=== PATIENT | female | born 1960 | race Caucasian/White ===

== ENCOUNTER 2018-11-24 23:02 | Inpatient (IN) ==
[2018-11-24] MEDS ORDERED: Ibuprofen 400 MG TABLET PO PRN (23:49)
[2018-11-24] MEDS ORDERED: *HR* LORazepam 1 MG TABLET PO PRN (23:49)
[2018-11-24] MEDS ORDERED: Mag Hydrox/Al Hydrox/Simeth 30 ML UDC PO PRN (23:49)
[2018-11-24] MEDS ORDERED: Haloperidol Lactate 5 MG/ML VIAL IM PRN (23:49)
[2018-11-24] MEDS ORDERED: MOM Conc 10 ML UD.LIQ PO PRN (23:49)
[2018-11-24] MEDS ORDERED: *HR* LORazepam 2 MG/ML VIAL IM PRN (23:49)
[2018-11-24] MEDS ORDERED: Nicotine 21 MG PATCH.TD24 TD ONE (23:53)
[2018-11-25] MEDS: Nicotine 21 MG PATCH.TD24 TD SCH ×2 (09:09→15:12)
--- NOTE | 2018-11-25 09:13 | Psychiatry History & Physical ---
Date of Encounter: 11/25/18 Time of Encounter: 09:11 History of Present Illness Patient Stated Chief Complaint: "I was wanting to end" Medicare Admission Attestation: For traditional Medicare patients the provided hospital inpatient services are reasonable and necessary and in the case of services not specified as inpatient-only under 42 CFR 419.22 (n), that they are appropriately provided as inpatient services in accordance 42 CFR 412.3. For Critical Access Hospital the patient may reasonably be expected to be discharged or transferred to a hospital within 96 hours after admission to the Critical Access Hospital. Admitted From: Direct Admit Plans for Post Hospital Care: Home History of Present Illness: Ms. Srivastava is a 58 year old female Who went to [facility] emergency room after pulling out a knife and holding it to her stomach saying that she wanted to . She also waited toward her but that she was not wanting to hurt him just wanting him to get back. She reports she has been feeling depressed for several years. She said that she had been on Zoloft and Klonopin but stopped taking it because she felt it was making her nauseous so that she could not eat and that she had lost too much weight. She reports sad mood decrease interest feelings of guilt and worthlessness low energy and impaired concentration decreased appetite with weight loss. She has also not been taking her medical medications. She reports suicidal ideation with a plan to cut herself. She denies past manic manic symptoms. She denies psychotic symptoms such as auditory or visual caldwell ucinations or paranoia. According to nursing staff this morning she came out of her room and appeared somewhat confused and had to be reoriented to the unit. Last night she got Haldol and Ativan due to being very anxious and upset and unable to sleep. Past Med Surg Social Fam HX - Past Medical History Medical history: diabetes, hyperlipidemia, hypertension - Past Psychiatric History Psychiatric history: Reports: anxiety, depression, previous psychiatric hospitalization Past psychiatric history details: The patient reports she had been getting medications by her primary care physician. She says she has previously been tried on Paxil which her doctor took her off to switch her to Zoloft she is not sure why. She was also taking Klonopin which she said was somewhat helpful. She has 1 prior hospitalization which was very brief about 3-4 months ago she went to [facility] in [place] but asked her to take her home which he did. She reports she has previously tried to wrists but only made "chicken scratches". She denies ever having tried therapy in the past. Family psychiatric history: Yes (She says her sister and niece have depression.) Family Psychiatric History Details: She says her sister and niece have depression. Family History of Suicide: Attempted Family Suicide History Details: Not in biological family however her sister's brother did attempt suicide. - Past Surgical History Surgical History: , hysterectomy, other - Social History Smoking Status: Current every day smoker Smokeless Tobacco Status: No Alcohol use: none Drug use: none Additional substance use detail: She reports 1 pack of cigarettes per day no alcohol or drugs. Occupational status: unemployed, previously employed Current living situation: Home - Independent Activity Level: Independent ambulation Recent Out of Country Travel Within the Last 8 Weeks: No Exposure or Possible Exposure to Illness During Travel: No Additional social history: She graduated high school. She is . She says her tries to be supportive. There is no abuse. She has 2 adult sons. 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 She has not been employed for several years. Medications & Allergies Glimepiride [Amaryl] 4 mg PO DAILY 11/24/18 [History] Lisinopril 2.5 mg PO DAILY 11/24/18 [History] Sertraline [Zoloft] 50 mg PO BID 11/24/18 [History] Simvastatin [Zocor] 20 mg PO DAILY 11/24/18 [History] clonazePAM [Clonazepam] 1 mg PO BID PRN 11/24/18 [History] metFORMIN [Glucophage] 1,000 mg PO BIDWM 11/24/18 [History] Allergy/AdvReac Type Severity Reaction Status Date / Time No Known Allergies Allergy Verified 11/24/18 23:29 Review of Systems Constitutional: Reports: weakness, weight change Eyes: Denies: eye pain, vision change Ears, Nose, Throat: Denies: ear pain Cardiovascular: Denies: chest pain Respiratory: Denies: cough Gastrointestinal: Denies: abdominal pain Genitourinary female: Denies: urgency Musculoskeletal: Reports: joint pain, myalgia Integumentary: Reports: lesions (On her forehead and her knuckles.) Neurological: Reports: weakness Psychiatric: Reports: depression, anxiety, abnormal sleep pattern, suicidal ideation, change in appetite, difficulty concentrating, hopelessness. Denies: homicidal ideation, auditory hallucinations Endocrine: Reports: fatigue Hematologic/Lymphatic: Reports: easy bruising Allergic/Immunologic: Denies: urticaria Exam - HEENT Head exam IM: Present: atraumatic Eye exam IM: Present: normal appearance ENT exam IM: Present: mucous membranes moist - Neurological Neurological exam: Present: alert - Respiratory Respiratory exam IM: Absent: respiratory distress - GI/Abdominal GI/Abdominal exam IM: Absent: no peritoneal signs - Extremities Extremities exam IM: Present: full ROM - Skin Skin exam IM: Present: abrasion (She has an abrasion above her eyes and a crack on her knuckle that appears to be related to dry skin), dry - Constitutional Vitals: Temp Pulse Resp BP Pulse Ox 97.1 F L 87 16 127/71 97 11/25/18 09:00 11/25/18 09:00 11/25/18 09:00 11/25/18 09:00 11/25/18 09:00 General appearance: age & developmentally appropriate, disheveled - Musculoskeletal Gait: slow Station: stooped Strength & Tone: mild weakness - Psychiatric Patient Orientation: Yes Person, Yes Time, Yes Place, Yes Circumstance Level of alertness: Alert Behavior: restless, guarded Psychomotor activity: Slowed Eye Contact: Minimal Contact Mood Description: Depressed Patient description of mood: "Terrible" Affect description: blunted, dysphoric Speech Volume: Soft/Quiet Speech pattern: slowed Language & Vocabulary: consistent with education, difficulty finding words Thought Process: Slowed Thinking Thought Content: Yes Suicidal ideation, No Homicidal ideation Perceptual Disturbances: No Auditory hallucinations, No Visual hallucinations Attention Span Ability: Unable to Focus, Unable to Sustain Attention Memory Description: Immediate Impaired, Recent Impaired, Remote Impaired Patient Reliability: Questionable Historian Fund of knowledge: Yes average Intelligence Estimate: Average Judgment: Limited Insight: Minimal Assessment and Plan (1) Depressed Current visit: Yes Status: Acute Plan: Admit inpatient for safety and stabilization Additional Plan: I will check labs including CBC CMP TSH and urinalysis. I will check if she had lab work done at [facility]. If not I will check the above labs. I will start her on Remeron 7.5 mg by mouth daily at bedtime for depression and anxiety and her feeling that she has decreased appetite. Discussed risk benefit side effects of this alternative treatment options as well as the risks and benefits of no treatment. Will get her back on her Glucophage but at a lower dose to start with and check her Accu-Cheks I will also restart her lisinopril was checking her blood pressures and recheck her simvastatin. Encourage group attendance. Social work will get collateral information from family. Risks, benefits, side effects, alternatives discussed w/pt: Yes Patient agreeable to treatment: Yes Plans for Post Hospital Care: Home Estimated Length of Stay (Days): 5 Qualifiers: Depression Type: major depressive disorder Major depression recurrence: recurrent Active/Remission status: currently active Major depression episode severity: severe Psychotic features: without psychotic features Qualified Code(s): F33.2 - Major depressive disorder, recurrent severe without psychotic features
[2018-11-25] MEDS: clonazePAM 0.5 MG TABLET PO SCH ×2 (11:56→21:11)
[2018-11-25] MEDS: *HR* Metformin 500 MG TABLET PO SCH (17:30)
[2018-11-25] MEDS: Mirtazapine 15 MG TABLET PO SCH (21:11)
[2018-11-26] MEDS: *HR* Metformin 500 MG TABLET PO SCH ×2 (08:58→16:49)
[2018-11-26] MEDS: Nicotine 21 MG PATCH.TD24 TD SCH ×2 (08:58→10:17)
[2018-11-26] MEDS: clonazePAM 0.5 MG TABLET PO SCH ×2 (08:58→20:34)
--- NOTE | 2018-11-26 11:46 | Psychiatry Progress Note ---
Date of Encounter: 11/26/18 Time of Encounter: 11:42 Subjective Interval history: Client states she slept well last night with the Remeron. Also reports her appetite is fine. However, she is very flat. Denies SI but looks very depressed. Also seems to have some paranoia. Asking about what would happen if she was discharged and her did not show up to pick her up. According to staff he visited last night and was very supportive. reported she can come home but client stated last night she's not sure if that is possible. Suspect she has a psychotic depression. Would likely benefit from some low dose Risperdal. Client is small and thin so a little medication might go a long way with her. Will give her a low dose tonight to take with the Remeron. Review of Systems Constitutional: Denies: fever, chills, weakness, weight change Eyes: Denies: eye pain, vision change Ears, Nose, Throat: Denies: ear pain, throat pain, dental pain, hearing loss, congestion Cardiovascular: Denies: chest pain, palpitations, dyspnea on exertion Respiratory: Denies: cough, dyspnea, wheezes Gastrointestinal: Denies: abdominal pain, nausea, vomiting, diarrhea, constipation Musculoskeletal: Denies: joint swelling, joint pain Neurological: Denies: headache, weakness, numbness, memory loss Psychiatric: Reports: depression, anxiety, abnormal sleep pattern, suicidal ideation, change in appetite, difficulty concentrating, hopelessness. Denies: homicidal ideation, auditory hallucinations Results - Vital Signs Vital Signs: Temp Pulse Resp BP Pulse Ox 98 F 94 16 131/79 97 11/26/18 09:00 11/26/18 09:00 11/26/18 09:00 11/26/18 09:00 11/26/18 09:00 - Labs Labs: Laboratory Results - last 24 hr 11/25/18 11/25/18 11/25/18 11:55 16:31 20:11 POC Glucose 318 H 235 H 331 H 11/26/18 11/26/18 08:36 10:46 POC Glucose 245 H 320 H Assessment and Plan (1) Severe recurrent major depression w/psychotic features, mood-congruent Current visit: Yes Status: Acute Plan: Continue hospitalization, Close observation, Suicide Precautions per unit protocol, Encourage participation in unit milieu, Group Therapy, Monitor sleep, Monitor appetite Risks, benefits, side effects, alternatives discussed w/pt: Yes Patient agreeable to treatment: Yes Consult Discharge Plan - Plan Referrals: NONE,PCP [Primary Care Provider] - Psychiatry Exam - Constitutional Vitals: Temp Pulse Resp BP Pulse Ox 98 F 94 16 131/79 97 11/26/18 09:00 11/26/18 09:00 11/26/18 09:00 11/26/18 09:00 11/26/18 09:00 General appearance: thin - Musculoskeletal Gait: normal Station: relaxed Strength & Tone: normal for patient - Psychiatric Patient Orientation: Yes Person, Yes Time, Yes Place Level of alertness: Alert Behavior: calm, cooperative Psychomotor activity: Normal Eye Contact: Maintains Eye Contact Mood Description: Depressed Affect description: flat Speech Volume: Normal Speech pattern: normal rate, normal rhythm, normal tone, fluent, spontaneous Language & Vocabulary: consistent with education Thought Process: Linear Thought Content: No Suicidal ideation, No Homicidal ideation, Yes Paranoid delusion Perceptual Disturbances: No Auditory hallucinations, No Visual hallucinations Attention Span Ability: Capable of Focused Attention Memory Description: Grossly Intact Patient Reliability: Reliable Historian Fund of knowledge: Yes abstraction ability, Yes aware of current events Intelligence Estimate: Average Judgment: Limited Insight: Minimal
[2018-11-26 13:18] LABS: Estimated Average Glucose 275 mg/dl; Hemoglobin A1C 11.2 %
[2018-11-26] MEDS: Mirtazapine 15 MG TABLET PO SCH (20:34)
[2018-11-26] MEDS: risperiDONE 0.25 MG TABLET PO SCH (20:38)
[2018-11-27] MEDS: clonazePAM 0.5 MG TABLET PO SCH ×2 (08:15→20:20)
[2018-11-27] MEDS: Nicotine 21 MG PATCH.TD24 TD SCH ×2 (08:15→19:06)
[2018-11-27] MEDS: *HR* Metformin 500 MG TABLET PO SCH ×2 (08:15→17:40)
--- NOTE | 2018-11-27 10:01 | Psychiatry Progress Note ---
Date of Encounter: 11/27/18 Time of Encounter: 09:50 Subjective Interval history: Client refused her Remeron last night. However, she took her Risperdal and Zestril. According to staff there did not seem to be any reason why she selected those two meds. It seems like she just picked out two of them, took them, and refused the rest. Today client states she took "some of them" but did not have any clear reasons for refusing the others. Spent a lot of time this morning going over each medication. Client wrote down all her individual medications including their doses, frequencies, and indications. States she will take them tonight. Denies SI but admits she is depressed. States she does not have an appetite and is not eating well. Very flat. Still paranoid will not pick her up when discharged or come to visit her here in the hospital. According to staff he seems to really care for her and wants her home. Staff spoke with her via phone last night and it seems as if client has been doing/thinking bizarre things at home for a while. Client seems like she has a psychotic depression. Although not actively suicidal she does not seem safe for discharge. She is willing to stay in the hospital for treatment and agrees to take the medications as prescribed tonight. Review of Systems Constitutional: Denies: fever, chills, weakness, weight change Eyes: Denies: eye pain, vision change Ears, Nose, Throat: Denies: ear pain, throat pain, dental pain, hearing loss, congestion Cardiovascular: Denies: chest pain, palpitations, dyspnea on exertion Respiratory: Denies: cough, dyspnea, wheezes Gastrointestinal: Denies: abdominal pain, nausea, vomiting, diarrhea, constipation Musculoskeletal: Denies: joint swelling, joint pain Neurological: Denies: headache, weakness, numbness, memory loss Psychiatric: Reports: depression, anxiety, abnormal sleep pattern, suicidal ideation, change in appetite, difficulty concentrating, hopelessness. Denies: homicidal ideation, auditory hallucinations Results - Vital Signs Vital Signs: Temp Pulse Resp BP Pulse Ox 97.5 F L 100 18 103/69 96 11/27/18 09:00 11/27/18 09:00 11/27/18 09:00 11/27/18 09:00 11/27/18 09:00 - Labs Labs: Laboratory Results - last 24 hr 11/25/18 11/26/18 11/26/18 10:17 10:46 16:37 POC Glucose 320 H 246 H Est Mean Plasma Glucose 275 Hemoglobin A1c 11.2 H 11/26/18 11/27/18 20:27 07:51 POC Glucose 248 H 217 H Est Mean Plasma Glucose Hemoglobin A1c Assessment and Plan (1) Severe recurrent major depression w/psychotic features, mood-congruent Current visit: Yes Status: Acute Plan: Continue hospitalization, Close observation, Suicide Precautions per unit protocol, Encourage participation in unit milieu, Group Therapy, Monitor sleep, Monitor appetite Risks, benefits, side effects, alternatives discussed w/pt: Yes Patient agreeable to treatment: Yes Consult Discharge Plan - Plan Referrals: NONE,PCP [Primary Care Provider] - Psychiatry Exam - Constitutional Vitals: Temp Pulse Resp BP Pulse Ox 97.5 F L 100 18 103/69 96 11/27/18 09:00 11/27/18 09:00 11/27/18 09:00 11/27/18 09:00 11/27/18 09:00 General appearance: thin - Musculoskeletal Gait: normal Station: relaxed Strength & Tone: normal for patient - Psychiatric Patient Orientation: Yes Person, Yes Time, Yes Place Level of alertness: Alert Behavior: calm, cooperative Psychomotor activity: Normal Eye Contact: Maintains Eye Contact Mood Description: Depressed Affect description: flat Speech Volume: Normal Speech pattern: normal rate, normal rhythm, normal tone, fluent, spontaneous Language & Vocabulary: consistent with education Thought Process: Evasive Thought Content: No Suicidal ideation, No Homicidal ideation, Yes Paranoid delusion Perceptual Disturbances: No Auditory hallucinations, No Visual hallucinations Attention Span Ability: Capable of Focused Attention Memory Description: Grossly Intact Patient Reliability: Reliable Historian Fund of knowledge: Yes abstraction ability, Yes aware of current events Intelligence Estimate: Average Judgment: Limited Insight: Minimal
[2018-11-27] MEDS: traZODone 50 MG TABLET PO PRN (20:19)
[2018-11-27] MEDS: Mirtazapine 15 MG TABLET PO SCH (20:20)
[2018-11-27] MEDS: risperiDONE 0.25 MG TABLET PO SCH (20:21)
[2018-11-28] MEDS: Nicotine 21 MG PATCH.TD24 TD SCH (08:34)
[2018-11-28] MEDS: clonazePAM 0.5 MG TABLET PO SCH ×2 (08:34→20:40)
[2018-11-28] MEDS: *HR* Metformin 500 MG TABLET PO SCH ×2 (08:34→16:38)
--- NOTE | 2018-11-28 10:36 | Psychiatry Progress Note ---
Date of Encounter: 11/28/18 Time of Encounter: 10:31 Subjective Interval history: Client reports she is starting to feel a little better. Definitely looks better today. Still making statements about being unsure if she can go home and that her might not pick her up. However, she seems more confident that he wants her. Apparently her visited last night and the visit seemed to go well. Client appears to have more affect today. Had been very flat but she is even managing to smile a little now. Appetite seems to be improving. Able to make herself eat more. Sleeping well with the Trazodone. Last night was the first time she took all meds as prescribed so hopefully she is on the right track now. Thoughts seem more fluid. Able to attend a couple of groups. Still needs a couple of days but definitely seems to be improving. Anticipate discharge by the end of the week. Review of Systems Constitutional: Denies: fever, chills, weakness, weight change Eyes: Denies: eye pain, vision change Ears, Nose, Throat: Denies: ear pain, throat pain, dental pain, hearing loss, congestion Cardiovascular: Denies: chest pain, palpitations, dyspnea on exertion Respiratory: Denies: cough, dyspnea, wheezes Gastrointestinal: Denies: abdominal pain, nausea, vomiting, diarrhea, constipation Musculoskeletal: Denies: joint swelling, joint pain Neurological: Denies: headache, weakness, numbness, memory loss Psychiatric: Reports: depression, anxiety, abnormal sleep pattern, suicidal ideation, change in appetite, difficulty concentrating, hopelessness. Denies: homicidal ideation, auditory hallucinations Results - Vital Signs Vital Signs: Temp Pulse Resp BP Pulse Ox 98.1 F 91 18 100/67 97 11/28/18 09:00 11/28/18 09:00 11/28/18 09:00 11/28/18 09:00 11/28/18 09:00 - Labs Labs: Laboratory Results - last 24 hr 11/27/18 11/27/18 11/27/18 11:48 16:23 19:35 POC Glucose 211 H 320 H 286 H 11/28/18 07:47 POC Glucose 230 H Assessment and Plan (1) Severe recurrent major depression w/psychotic features, mood-congruent Current visit: Yes Status: Acute Plan: Continue hospitalization, Close observation, Suicide Precautions per unit protocol, Encourage participation in unit milieu, Group Therapy, Monitor sleep, Monitor appetite Risks, benefits, side effects, alternatives discussed w/pt: Yes Patient agreeable to treatment: Yes Consult Discharge Plan - Plan Referrals: [facility] [Other] - 12/10/18 3:00 pm (You have an appointment scheduled with your primary care provider Dr. Nancy Jerez on MondayDecember 10 at 3:00 PM. After you see Dr. Jerez that day you will be scheduled with ALEXA Dumont for medication management. Please contact the office at the number above at least 24 hours in advance if you are unable to keep this appointment. ) Psychiatry Exam - Constitutional Vitals: Temp Pulse Resp BP Pulse Ox 98.1 F 91 18 100/67 97 11/28/18 09:00 11/28/18 09:00 11/28/18 09:00 11/28/18 09:00 11/28/18 09:00 General appearance: thin - Musculoskeletal Gait: normal Station: relaxed Strength & Tone: normal for patient - Psychiatric Patient Orientation: Yes Person, Yes Time, Yes Place Level of alertness: Alert Behavior: calm, cooperative Psychomotor activity: Normal Eye Contact: Maintains Eye Contact Mood Description: Depressed, Anxious Affect description: congruent with mood Speech Volume: Normal Speech pattern: normal rate, normal rhythm, normal tone, fluent, spontaneous Language & Vocabulary: consistent with education Thought Process: Linear Thought Content: No Suicidal ideation, No Homicidal ideation, Yes Paranoid delusion Perceptual Disturbances: No Auditory hallucinations, No Visual hallucinations Attention Span Ability: Capable of Focused Attention Memory Description: Grossly Intact Patient Reliability: Reliable Historian Fund of knowledge: Yes abstraction ability, Yes aware of current events Intelligence Estimate: Average Judgment: Fair Insight: Partial
[2018-11-28] MEDS: risperiDONE 0.25 MG TABLET PO SCH (20:39)
[2018-11-28] MEDS: traZODone 50 MG TABLET PO PRN (20:39)
[2018-11-28] MEDS: Mirtazapine 15 MG TABLET PO SCH (20:42)
[2018-11-29] MEDS: Nicotine 21 MG PATCH.TD24 TD SCH (08:36)
[2018-11-29] MEDS: *HR* Metformin 500 MG TABLET PO SCH ×2 (08:36→17:02)
[2018-11-29] MEDS: clonazePAM 0.5 MG TABLET PO SCH ×2 (08:36→20:52)
--- NOTE | 2018-11-29 12:32 | Psychiatry Progress Note ---
Date of Encounter: 11/29/18 Time of Encounter: 12:27 Subjective Interval history: Client continues to look better. Still struggles with depression and paranoid thinking but she is out of her room interacting now. Attending groups and doing well in them. Had affect today when speaking with this lead technical writer. Able to smile some. Client does not notice a ton of improvement but staff are noticing big changes in her. Admitted today that suicide "has crossed my mind." States she is "pushing the thoughts away" but today is the first time she acknowledged them. Still fretful about returning home and being able to do "what is expected of me." When asked what is expected of her client states "taking care of myself." Although client does not feel able to do this yet she is starting to demonstrate a readiness to care for her needs. Asked to shave chin hairs yesterday which is a great step. Claims she "doesn't feel human" yet but she is physically looking better. Blood sugars have been running high so will increase Metformin dose today. Will also adjust Risperdal dose to help with some of the lingering psychosis. Review of Systems Constitutional: Denies: fever, chills, weakness, weight change Eyes: Denies: eye pain, vision change Ears, Nose, Throat: Denies: ear pain, throat pain, dental pain, hearing loss, congestion Cardiovascular: Denies: chest pain, palpitations, dyspnea on exertion Respiratory: Denies: cough, dyspnea, wheezes Gastrointestinal: Denies: abdominal pain, nausea, vomiting, diarrhea, constipation Musculoskeletal: Denies: joint swelling, joint pain Neurological: Denies: headache, weakness, numbness, memory loss Psychiatric: Reports: depression, anxiety, abnormal sleep pattern, suicidal ideation, change in appetite, difficulty concentrating, hopelessness. Denies: homicidal ideation, auditory hallucinations Results - Vital Signs Vital Signs: Temp Pulse Resp BP Pulse Ox 96.8 F L 88 16 98/61 99 11/29/18 09:00 11/29/18 09:00 11/29/18 09:00 11/29/18 09:00 11/29/18 09:00 - Labs Labs: Laboratory Results - last 24 hr 11/28/18 11/28/18 11/29/18 16:35 20:11 08:04 POC Glucose 245 H 250 H 270 H 11/29/18 11:18 POC Glucose 323 H Assessment and Plan (1) Severe recurrent major depression w/psychotic features, mood-congruent Current visit: Yes Status: Acute Plan: Continue hospitalization, Close observation, Suicide Precautions per unit protocol, Encourage participation in unit milieu, Group Therapy, Monitor sleep, Monitor appetite Risks, benefits, side effects, alternatives discussed w/pt: Yes Patient agreeable to treatment: Yes Consult Discharge Plan - Plan Referrals: [facility] [Other] - 12/10/18 3:00 pm (You have an appointment scheduled with your primary care provider Dr. Nancy Jeerz on MondayDecember 10 at 3:00 PM. After you see Dr. Jerez that day you will be scheduled with [facility]LE[facility] Dumont for medication management. Please contact the office at the number above at least 24 hours in advance if you are unable to keep this appointment. ) Psychiatry Exam - Constitutional Vitals: Temp Pulse Resp BP Pulse Ox 96.8 F L 88 16 98/61 99 11/29/18 09:00 11/29/18 09:00 11/29/18 09:00 11/29/18 09:00 11/29/18 09:00 General appearance: thin - Musculoskeletal Gait: normal Station: relaxed Strength & Tone: normal for patient - Psychiatric Patient Orientation: Yes Person, Yes Time, Yes Place Level of alertness: Alert Behavior: calm, cooperative Psychomotor activity: Normal Eye Contact: Maintains Eye Contact Mood Description: Depressed Affect description: congruent with mood Speech Volume: Normal Speech pattern: normal rate, normal rhythm, normal tone, fluent, spontaneous Language & Vocabulary: consistent with education Thought Process: Linear Thought Content: Yes Suicidal ideation, No Homicidal ideation, Yes Paranoid delusion Perceptual Disturbances: No Auditory hallucinations, No Visual hallucinations Attention Span Ability: Capable of Focused Attention Memory Description: Grossly Intact Patient Reliability: Reliable Historian Fund of knowledge: Yes abstraction ability, Yes aware of current events Intelligence Estimate: Average Judgment: Fair Insight: Partial
[2018-11-29] MEDS: risperiDONE 0.25 MG TABLET PO SCH (20:51)
[2018-11-29] MEDS: Mirtazapine 15 MG TABLET PO SCH (20:51)
[2018-11-29] MEDS: traZODone 50 MG TABLET PO PRN (20:52)
[2018-11-29] MEDS: hydrOXYzine pamoate 25 MG CAPSULE PO PRN (20:54)
[2018-11-30] MEDS: *HR* Metformin 500 MG TABLET PO SCH ×2 (08:28→16:46)
[2018-11-30] MEDS: clonazePAM 0.5 MG TABLET PO SCH ×2 (08:28→20:24)
[2018-11-30] MEDS: Nicotine 21 MG PATCH.TD24 TD SCH (08:29)
--- NOTE | 2018-11-30 10:35 | Psychiatry Progress Note ---
Date of Encounter: 11/30/18 Time of Encounter: 10:30 Subjective Interval history: Client continues to look better. Denies SI today. Mood is still down but she is out of her room interacting and attending groups. Smiling more often. No further thought blocking. No longer seems paranoid that she can't go home and even told this bid writer she plans to go home tomorrow. cannot pick her up or be home with her today. For this reason will delay discharge until tomorrow. Client is still clinically fragile and would want someone with her when she first goes home. expressed concerns to staff that client will stop her medications. Compliance has been an issue for her in the past. Discussed this with client today. She seems invested in continuing these meds but ultimately her compliance will be up to her. Staff have linked her with services including case management and staff intend to review a maintenance plan with her prior to discharge so that she feels more confident in her ability to keep up with her treatment. Review of Systems Constitutional: Denies: fever, chills, weakness, weight change Eyes: Denies: eye pain, vision change Ears, Nose, Throat: Denies: ear pain, throat pain, dental pain, hearing loss, congestion Cardiovascular: Denies: chest pain, palpitations, dyspnea on exertion Respiratory: Denies: cough, dyspnea, wheezes Gastrointestinal: Denies: abdominal pain, nausea, vomiting, diarrhea, constipation Musculoskeletal: Denies: joint swelling, joint pain Neurological: Denies: headache, weakness, numbness, memory loss Psychiatric: Reports: depression, anxiety, abnormal sleep pattern, suicidal ideation, change in appetite, difficulty concentrating, hopelessness. Denies: homicidal ideation, auditory hallucinations Results - Vital Signs Vital Signs: Temp Pulse Resp BP Pulse Ox 97.7 F 97 16 94/66 97 11/30/18 09:00 11/30/18 09:00 11/30/18 09:00 11/30/18 09:00 11/30/18 09:00 - Labs Labs: Laboratory Results - last 24 hr 11/29/18 11/29/18 11/29/18 11:18 16:32 20:42 POC Glucose 323 H 227 H 240 H 11/30/18 07:55 POC Glucose 236 H Assessment and Plan (1) Severe recurrent major depression w/psychotic features, mood-congruent Current visit: Yes Status: Acute Plan: Continue hospitalization, Close observation, Suicide Precautions per unit protocol, Encourage participation in unit milieu, Group Therapy, Monitor sleep, Monitor appetite Risks, benefits, side effects, alternatives discussed w/pt: Yes Patient agreeable to treatment: Yes Consult Discharge Plan - Plan Referrals: [facility] [Other] - 12/10/18 3:00 pm (You have an appointment scheduled with your primary care provider Dr. Nancy Jerez on MondayDecember 10 at 3:00 PM. After you see Dr. Jerez that day you will be scheduled with ALEXA Dumont for medication management. You have an appointment scheduled with Lulu Corcoran at this same location for counseling on MondayDecember 19 at 3:30 PM. Please contact the office at the number above at least 24 hours in advance if you are unable to keep this appointment. ) Psychiatry Exam - Constitutional Vitals: Temp Pulse Resp BP Pulse Ox 97.7 F 97 16 94/66 97 11/30/18 09:00 11/30/18 09:00 11/30/18 09:00 11/30/18 09:00 11/30/18 09:00 General appearance: thin - Musculoskeletal Gait: normal Station: relaxed Strength & Tone: normal for patient - Psychiatric Patient Orientation: Yes Person, Yes Time, Yes Place Level of alertness: Alert Behavior: calm, cooperative Psychomotor activity: Normal Eye Contact: Maintains Eye Contact Mood Description: Depressed Affect description: congruent with mood Speech Volume: Normal Speech pattern: normal rate, normal rhythm, normal tone, fluent, spontaneous Language & Vocabulary: consistent with education Thought Process: Linear Thought Content: No Suicidal ideation, No Homicidal ideation, No Overt delusions Perceptual Disturbances: No Auditory hallucinations, No Visual hallucinations Attention Span Ability: Capable of Focused Attention Memory Description: Grossly Intact Patient Reliability: Reliable Historian Fund of knowledge: Yes abstraction ability, Yes aware of current events Intelligence Estimate: Average Judgment: Fair Insight: Partial
[2018-11-30 19:28] VITALS: BP 130/77
[2018-11-30] MEDS: Mirtazapine 15 MG TABLET PO SCH (20:23)
[2018-11-30] MEDS: hydrOXYzine pamoate 25 MG CAPSULE PO PRN (20:23)
[2018-11-30] MEDS: traZODone 50 MG TABLET PO PRN (20:23)
[2018-11-30] MEDS: risperiDONE 0.25 MG TABLET PO SCH (20:24)
[2018-12-01] MEDS: clonazePAM 0.5 MG TABLET PO SCH (08:37)
[2018-12-01] MEDS: Nicotine 21 MG PATCH.TD24 TD SCH (08:37)
[2018-12-01] MEDS: *HR* Metformin 500 MG TABLET PO SCH (08:37)
--- NOTE | 2018-12-01 08:46 | Discharge Summary ---
Date of Encounter: 12/01/18 Time of Encounter: 08:43 Diagnosis - Discharge Diagnosis (1) Severe recurrent major depression w/psychotic features, mood-congruent Status: Acute Medications - Discharge Medications Prescriptions: hydrOXYzine pamoate [HydrOXYzine Pamoate] 25 mg PO TID PRN #90 capsule PRN Reason: Anxiety Mirtazapine [Remeron] 7.5 mg PO HS #15 tablet risperiDONE [RisperDAL] 0.5 mg PO HS #60 tablet traZODone [TraZODone] 50 mg PO HS PRN #30 tablet PRN Reason: Insomnia Lisinopril 2.5 mg PO DAILY 11/24/18 [History] Simvastatin [Zocor] 20 mg PO DAILY 11/24/18 [History] clonazePAM [Clonazepam] 1 mg PO BID PRN 11/24/18 [History] metFORMIN [Glucophage] 1,000 mg PO BIDWM 11/24/18 [History] Mirtazapine [Remeron] 7.5 mg PO HS #15 tablet 12/01/18 [Rx] hydrOXYzine pamoate [HydrOXYzine Pamoate] 25 mg PO TID PRN #90 capsule 12/01/18 [Rx] risperiDONE [RisperDAL] 0.5 mg PO HS #60 tablet 12/01/18 [Rx] traZODone [TraZODone] 50 mg PO HS PRN #30 tablet 12/01/18 [Rx] Allergy/AdvReac Type Severity Reaction Status Date / Time No Known Allergies Allergy Verified 11/24/18 23:29 Results Procedures and tests throughout hospitalization: Completed Lab Orders Category Date Time Status Hgb A1C Routine Lab 11/25/18 10:17 Completed Thyroid Stimulating Hormone Routine Lab 11/25/18 10:17 Completed Provider Date of admission: 11/24/18 23:02 Primary care physician: PCP NONE Discharging clinician: Courtney Ruffin Psychiatry Exam - Constitutional Vitals: Temp Pulse Resp BP Pulse Ox 97.5 F L 87 16 130/77 98 12/01/18 08:39 12/01/18 08:39 12/01/18 08:39 12/01/18 08:39 12/01/18 08:39 General appearance: thin - Musculoskeletal Gait: normal Station: relaxed Strength & Tone: normal for patient - Psychiatric Patient Orientation: Yes Person, Yes Time, Yes Place Level of alertness: Alert Behavior: calm, cooperative Psychomotor activity: Normal Eye Contact: Maintains Eye Contact Mood Description: Anxious Affect description: congruent with mood Speech Volume: Normal Speech pattern: normal rate, normal rhythm, normal tone, fluent, spontaneous Language & Vocabulary: consistent with education Thought Process: Linear, Goal Oriented Thought Content: No Suicidal ideation, No Homicidal ideation, No Overt delusions Perceptual Disturbances: No Auditory hallucinations, No Visual hallucinations Attention Span Ability: Capable of Focused Attention Memory Description: Grossly Intact Patient Reliability: Reliable Historian Fund of knowledge: Yes abstraction ability, Yes aware of current events Intelligence Estimate: Average Judgment: Fair Insight: Partial Hospital Course Hospital course: Ms. Srivastava is a 58 year old female who was admitted due to SI. She was started on Remeron with some improvement. However, it was felt she was demonstrating symptoms of psychosis with some paranoid thinking and low dose Risperdal was added. Client greatly improved on this combination. In the beginning she was flat with thought blocking and paranoid thinking. Today she is bright, reactive, and future oriented. Able to have normal conversations. Attending groups and doing well in them. Interacting with staff and peers. Sleeping well and eating better. Much improved. Today client denies SI/HI/AH/VH. The concern her voiced is that client will discontinue medications, which has been her pattern for the last twenty years. Client states today that she wants to stay on this combination of medications and she has been linked with outpatient services to help assist with this. Client's blood sugars were elevated this admission. She had been noncompliant with her diabetes regimen at home. She was started back on her Metformin and told she will need to follow up with Endocrinology as her mental health medications could impact her blood sugars in a negative way down the road. Total time spent with client greater than 30 minutes. - Time Spent with Patient Total time spent providing and/or coordinating discharge services: Assessment and Plan - Patient/Caregiver Discharge Instructions Activity: resume usual activities as tolerated Diet: diabetic diet - Follow up Plan Follow up with: [facility] [Other] - 12/10/18 3:00 pm (You have an appointment scheduled with your primary care provider Dr. Nancy Jerez on MondayDecember 10 at 3:00 PM. After you see Dr. Jerez that day you will be [facility]. You have an appointment scheduled with Lulu Corcoran at this same location for counseling on MondayDecember 19 at 3:30 PM. Please contact the office at the number above at least 24 hours in advance if you are unable to keep this appointment. ) Functional capacity at discharge: independent ambulation Overall status at discharge: Stable Disposition: Home, Self-Care Quality - Multiple Antipsychotics Patient discharged on 2 or more antipsychotic medications: No Procedures - Procedures Procedures: Medication Management, Crisis Stabilization, Supportive Therapy, Group Therapy
== END 2018-12-01 12:45 | disposition home or self-care (01) | DRG 885 ==
LOC: 1ANU 23:02
PROVIDERS: ADMIT Psychiatry & Neurology Psychiatry; ATTEND Psychiatry & Neurology Psychiatry